=== PATIENT | male | born 1965 | race African-American/Black ===

== ENCOUNTER 2017-02-12 08:19 | Inpatient (IN) | payer OTHER ==
[~2017-02-12] VITALS: Ht 180.3 cm; Wt 91.6 kg
[2017-02-12] MEDS ORDERED: ARIP20TA2 PO (10:12)
[2017-02-12] MEDS ORDERED: QUET100T PO (10:13)
[2017-02-12 11:41] LABS: *AMPHETAMINES SCREEN URINE NEGATIVE (NEGATIVE); *BARBITURATES SCREEN URINE NEGATIVE (NEGATIVE); *BENZODIAZEPINES SCREEN URINE NEGATIVE (NEGATIVE); *COCAINE SCREEN URINE PRESUMTIVE POSITIVE (NEGATIVE); CANNABINOID URINE SCREEN PRESUMTIVE POSITIVE (NEGATIVE); METHADONE URINE SCREEN NEGATIVE (NEGATIVE); OPIATES URINE SCREEN NEGATIVE (NEGATIVE); PHENCYCLIDINE URINE SCREEN NEGATIVE (NEGATIVE)
[2017-02-12 11:45] LABS: HEMATOCRIT. 47.1 % (42.0-52.0); HEMOGLOBIN. 15.4 g/dL (14.0-18.0); LYMPHOCYTES % 11.5 % (20.0-50.0); MEAN CORPUSCULAR HEMOGLOBIN 29.5 pg (28.0-32.0); MEAN CORPUSCULAR VOLUME 89.9 fL (80.0-94.0); MEAN PLATELET VOLUME 8.9 fl (7.4-10.4); NEUTROPHILS % 77.5 % (40.0-76.0); PLATELET 372 x1000/uL (130-400); RED BLOOD CELL COUNT 5.24 mill/uL (4.7-6.1); RED CELL DISTRIBUTION WIDTH 13.3 % (11.6-14.6)
[2017-02-12 12:02] LABS: CARBON DIOXIDE 25 mEq/L (21-32); CHLORIDE 102 mEq/L (98-107); ETHANOL BLOOD < 10 mg/dL
[2017-02-12] MEDS ORDERED: ASPIRIN 325MG TABLET PO ONE (13:00)
[2017-02-12] MEDS ORDERED: SODIUM CHLORIDE 0.9% 1000ML BAG (SEPSIS BOLUS) IV ONE (13:00)
[2017-02-12] MEDS ORDERED: SODIUM CHLORIDE 0.9% 1,000 ML IV SCH (15:52)
[2017-02-12 17:31] LABS: CLARITY URINE CLOUDY (CLEAR); COLOR URINE YELLOW (YELLOW); GLUCOSE URINE NEGATIVE (NEGATIVE); KETONES URINE TRACE (NEGATIVE); LEUKOCYTE ESTERASE URINE NEGATIVE (NEGATIVE); NITRITE URINE NEGATIVE (NEGATIVE); OCCULT BLOOD URINE 3+ (NEGATIVE); PH URINE 5.5 (4.5-8.0); PROTEIN URINE 2+ (NEGATIVE); SPECIFIC GRAVITY URINE 1.027 (1.005-1.030)
[2017-02-12 20:40] VITALS: BP 128/92
[2017-02-12] MEDS ORDERED: SODIUM CHLORIDE 0.45% 1,000 ML IV SCH (21:22)
[2017-02-12] MEDS ORDERED: ACETAMINOPHEN 650MG/20.3ML UDC GT PRN (21:30)
[2017-02-12] MEDS ORDERED: MAGNESIUM/ALUMINUM HYDROXIDE/SIMETHICONE 30ML UDC PO PRN (21:30)
[2017-02-12] MEDS ORDERED: CLONIDINE 0.1MG TABLET PO PRN (21:30)
[2017-02-12] MEDS ORDERED: ONDANSETRON HCL 4MG/2ML VIAL IV PRN (21:30)
[2017-02-12] MEDS ORDERED: IPRATROPIUM/ALBUTEROL 0.5-3(2.5)MG/3ML NEB INH PRN (21:30)
[2017-02-12] MEDS ORDERED: GUAIFENESIN 200MG/10ML SUGAR FREE UDC PO PRN (21:30)
[2017-02-12] MEDS ORDERED: NA PHOS,M-B/NA PHOS,DI-BA ENEMA 118ML PR PRN (21:30)
[2017-02-12] MEDS ORDERED: ACETAMINOPHEN 325MG TABLET PO PRN (21:30)
[2017-02-12] MEDS ORDERED: DIPHENHYDRAMINE 50MG/ML VIAL IV PRN (21:30)
[2017-02-12] MEDS ORDERED: DOCUSATE SODIUM 100MG CAPSULE PO PRN (21:30)
[2017-02-12] MEDS ORDERED: ACETAMINOPHEN 650MG SUPP PR PRN (21:30)
[2017-02-12 22:09] LABS: TROPONIN I 0.14 ng/mL (0.00-0.04)
[2017-02-13] VITALS (7 sets, daily range): BP systolic 97–128; BP diastolic 65–92
[2017-02-13] MEDS: SODIUM BICARBONATE 50 MEQ in SODIUM CHLORIDE 0.45% 1,000 ML IV SCH ×3 (00:13→16:41)
[2017-02-13] MEDS: SODIUM CHLORIDE 0.9% INJ 3ML FLUSH IVF SCH ×4 (00:25→21:54)
[2017-02-13 07:38] LABS: BASOPHILS % 0.7 % (0.0-2.0); EOSINOPHILS % 0.2 % (0.0-5.0); HEMATOCRIT. 39.6 % (42.0-52.0); LYMPHOCYTES % 23.2 % (20.0-50.0); MEAN CORPUSCULAR HEMOGLOBIN 29.6 pg (28.0-32.0); MEAN CORPUSCULAR VOLUME 89.8 fL (80.0-94.0); MONOCYTES % 13.5 % (2.0-8.0); NEUTROPHILS % 62.4 % (40.0-76.0); PLATELET 317 x1000/uL (130-400); RED BLOOD CELL COUNT 4.41 mill/uL (4.7-6.1); RED CELL DISTRIBUTION WIDTH 13.3 % (11.6-14.6)
[2017-02-13 07:43] LABS: CARBON DIOXIDE 26 mEq/L (21-32); CHLORIDE 106 mEq/L (98-107); LDL CHOLESTEROL 56 mg/dL (5-100); PHOSPHORUS 2.5 mg/dL (2.5-4.9)
[2017-02-13 08:09] LABS: CREATINE KINASE MB FRACTION 42.9 ng/mL (0.5-3.6); HDL CHOLESTEROL 42 mg/dL (40-59); TROPONIN I 0.08 ng/mL (0.00-0.04)
[2017-02-13 08:10] LABS: CREATINE KINASE 6645 IU/L (39-308)
[2017-02-13] MEDS: ASPIRIN 81MG TABLET PO SCH (10:03)
[2017-02-13] MEDS ORDERED: MEDICATION NOT ON FORMULARY EA (Aripiprazole (Abilify) 1 TAB) PO SCH (10:15)
[2017-02-13 11:08] LABS: T4 FREE 1.04 ng/dL (0.76-1.46)
[2017-02-13] MEDS ORDERED: ARIPIPRAZOLE 10MG TABLET PO SCH (11:30)
[2017-02-13] MEDS: ARIPIPRAZOLE 10MG TABLET PO SCH (12:26)
[2017-02-13] MEDS ORDERED: SODIUM CHLORIDE 0.9% 1,000 ML IV SCH (12:45)
[2017-02-13] MEDS ORDERED: BRIM15DR2 EACHEYE (13:00)
[2017-02-13] MEDS ORDERED: TIMO15DR12 EACHEYE (13:03)
[2017-02-13] MEDS ORDERED: [UNRECOGNIZED DRUG - OTHER] (13:03)
[2017-02-13] MEDS: TIMOLOL MALEATE 0.5% OPHTH DROPS 5ML EACHEYE SCH (16:42)
[2017-02-13 16:43] LABS: CREATINE KINASE MB FRACTION 28.9 ng/mL (0.5-3.6); TROPONIN I 0.05 ng/mL (0.00-0.04)
[2017-02-13] MEDS: LORAZEPAM 0.5MG TABLET PO PRN (17:47)
[2017-02-13] MEDS ORDERED: MEDICATION NOT ON FORMULARY EA (Brimonidine Tartrate (Alphagan P) 1 DROP) EACHEYE SCH (21:00)
[2017-02-13] MEDS: QUETIAPINE FUMARATE 100MG TABLET PO SCH (21:46)
[2017-02-13] MEDS: BRIMONIDINE 0.2% OPHTH DROPS 5ML EACHEYE SCH (21:46)
[2017-02-14] VITALS (7 sets, daily range): BP systolic 106–128; BP diastolic 73–91
[2017-02-14 00:14] LABS: CREATINE KINASE MB FRACTION 20.3 ng/mL (0.5-3.6); TROPONIN I 0.03 ng/mL (0.00-0.04)
[2017-02-14] MEDS: SODIUM BICARBONATE 50 MEQ in SODIUM CHLORIDE 0.45% 1,000 ML IV SCH ×2 (03:07→13:00)
[2017-02-14] MEDS: SODIUM CHLORIDE 0.9% INJ 3ML FLUSH IVF SCH ×3 (06:06→21:53)
[2017-02-14 06:47] LABS: BASOPHILS % 0.7 % (0.0-2.0); EOSINOPHILS % 0.7 % (0.0-5.0); HEMATOCRIT. 37.3 % (42.0-52.0); HEMOGLOBIN. 12.3 g/dL (14.0-18.0); LYMPHOCYTES % 34.1 % (20.0-50.0); MEAN CORPUSCULAR HEMOGLOBIN 29.3 pg (28.0-32.0); MEAN PLATELET VOLUME 8.9 fl (7.4-10.4); MONOCYTES % 13.6 % (2.0-8.0); NEUTROPHILS % 50.9 % (40.0-76.0); PLATELET 303 x1000/uL (130-400); RED BLOOD CELL COUNT 4.19 mill/uL (4.7-6.1); RED CELL DISTRIBUTION WIDTH 13.4 % (11.6-14.6)
[2017-02-14 07:13] LABS: CARBON DIOXIDE 30 mEq/L (21-32); CHLORIDE 104 mEq/L (98-107); CREATINE KINASE MB FRACTION 13.7 ng/mL (0.5-3.6); PHOSPHORUS 3.3 mg/dL (2.5-4.9); TROPONIN I 0.03 ng/mL (0.00-0.04)
[2017-02-14 07:21] LABS: CREATINE KINASE 3289 IU/L (39-308)
[2017-02-14] MEDS: ARIPIPRAZOLE 10MG TABLET PO SCH (09:14)
[2017-02-14] MEDS: TIMOLOL MALEATE 0.5% OPHTH DROPS 5ML EACHEYE SCH ×2 (09:14→17:12)
[2017-02-14] MEDS: ASPIRIN 81MG TABLET PO SCH (09:14)
[2017-02-14] MEDS: HYDROCODONE/ACETAMINOPHEN 5/325MG TABLET PO PRN (09:15)
[2017-02-14] MEDS: BRIMONIDINE 0.2% OPHTH DROPS 5ML EACHEYE SCH (21:53)
[2017-02-14] MEDS: QUETIAPINE FUMARATE 100MG TABLET PO SCH (21:53)
[2017-02-15 06:00] VITALS: BP 118/66
[2017-02-15 06:37] LABS: BASOPHILS % 0.8 % (0.0-2.0); EOSINOPHILS % 1.4 % (0.0-5.0); HEMATOCRIT. 40.2 % (42.0-52.0); HEMOGLOBIN. 13.1 g/dL (14.0-18.0); LYMPHOCYTES % 43.1 % (20.0-50.0); MEAN CORPUSCULAR HEMOGLOBIN 29.2 pg (28.0-32.0); MEAN CORPUSCULAR VOLUME 89.8 fL (80.0-94.0); MEAN PLATELET VOLUME 8.9 fl (7.4-10.4); MONOCYTES % 12.1 % (2.0-8.0); NEUTROPHILS % 42.6 % (40.0-76.0); PLATELET 327 x1000/uL (130-400); RED BLOOD CELL COUNT 4.48 mill/uL (4.7-6.1); RED CELL DISTRIBUTION WIDTH 13.3 % (11.6-14.6)
[2017-02-15] MEDS: SODIUM CHLORIDE 0.9% INJ 3ML FLUSH IVF SCH ×3 (06:51→21:43)
[2017-02-15 08:00] VITALS: BP 125/98
[2017-02-15 08:12] LABS: CARBON DIOXIDE 28 mEq/L (21-32); CHLORIDE 104 mEq/L (98-107); PHOSPHORUS 4.1 mg/dL (2.5-4.9)
[2017-02-15 08:20] LABS: CREATINE KINASE 1977 IU/L (39-308)
[2017-02-15] MEDS: ASPIRIN 81MG TABLET PO SCH (08:57)
[2017-02-15] MEDS: ARIPIPRAZOLE 10MG TABLET PO SCH (08:57)
[2017-02-15] MEDS: TIMOLOL MALEATE 0.5% OPHTH DROPS 5ML EACHEYE SCH ×2 (08:58→17:25)
[2017-02-15 12:00] VITALS: BP 112/81
[2017-02-15] MEDS: LORAZEPAM 0.5MG TABLET PO PRN (14:30)
[2017-02-15 16:00] VITALS: BP 116/88
[2017-02-15 20:00] VITALS: BP 119/81
[2017-02-15] MEDS: BRIMONIDINE 0.2% OPHTH DROPS 5ML EACHEYE SCH (21:43)
[2017-02-15] MEDS: QUETIAPINE FUMARATE 100MG TABLET PO SCH (21:43)
[2017-02-16] VITALS (7 sets, daily range): BP systolic 113–139; BP diastolic 65–97
[2017-02-16] MEDS: LORAZEPAM 0.5MG TABLET PO PRN ×2 (01:37→08:43)
[2017-02-16] MEDS: SODIUM CHLORIDE 0.9% INJ 3ML FLUSH IVF SCH ×2 (06:25→15:20)
[2017-02-16] MEDS: TIMOLOL MALEATE 0.5% OPHTH DROPS 5ML EACHEYE SCH (08:38)
[2017-02-16] MEDS: ARIPIPRAZOLE 10MG TABLET PO SCH (08:39)
[2017-02-16] MEDS: ASPIRIN 81MG TABLET PO SCH (08:39)
[2017-02-16] MEDS: HYDROCODONE/ACETAMINOPHEN 5/325MG TABLET PO PRN (08:44)
== END 2017-02-16 17:30 | disposition home or self-care (01) | DRG 917 ==
LOC: ER 08:32 → 6WST 15:52 → ENRESERV 18:53
PROVIDERS: ADMIT Family Medicine; ATTEND Family Medicine
DX: T40.5X2A Poisoning by cocaine, intentional self-harm, initial encounter (principal); N17.0 Acute kidney failure with tubular necrosis; E87.2 Acidosis; E83.52 Hypercalcemia; M62.82 Rhabdomyolysis; R45.851 Suicidal ideations; T40.7X2A Poisoning by cannabis (derivatives), intentional self-harm, initial encounter; N18.9 Chronic kidney disease, unspecified; D72.829 Elevated white blood cell count, unspecified; F10.10 Alcohol abuse, uncomplicated; F99 Mental disorder, not otherwise specified; H40.9 Unspecified glaucoma; Z87.891 Personal history of nicotine dependence; Z91.5 Personal history of self-harm; Z88.6 Allergy status to analgesic agent; Z88.8 Allergy status to other drugs, medicaments and biological substances; Z79.899 Other long term (current) drug therapy; Y92.89 Other specified places as the place of occurrence of the external cause; F32.9 Major depressive disorder, single episode, unspecified
CPT/HCPCS: 36415; 71010; 80048; 80053; 80061; 80305; 80307; 80329; 81001; 82550; 82553; 82962; 83036; 83605; 83735; 83880; 84100; 84439; 84443; 84484; 85025; 85379; 87040; 87086; 93005; 93306; 96360; 99285; G0482; J3490; J7030; J7040; J7620

== ENCOUNTER 2019-05-24 03:25 | Emergency (ER) | payer BC, OTHER, MEDICAID ==
[~2019-05-24] VITALS: Ht 175.3 cm; Wt 87.0 kg
[~2019-05-24 03:25] MED LIST: ARIP20TA2 PO; BRIM15DR2 EACHEYE; QUET100T PO; TIMO15DR12 EACHEYE; [UNRECOGNIZED DRUG - OTHER]
[2019-05-24 04:10] LABS: BASOPHILS % 1.2 % (0.0-2.0); HEMATOCRIT. 44.2 % (42.0-52.0); HEMOGLOBIN. 14.5 g/dL (14.0-18.0); LYMPHOCYTES % 19.1 % (20.0-50.0); MEAN CORPUSCULAR HEMOGLOBIN 30.2 pg (28.0-32.0); MEAN CORPUSCULAR VOLUME 92.2 fL (80.0-94.0); NEUTROPHILS % 66.7 % (40.0-76.0); PLATELET 373 x1000/uL (130-400); RED BLOOD CELL COUNT 4.79 mill/uL (4.7-6.1); RED CELL DISTRIBUTION WIDTH 14.1 % (11.6-14.6)
[2019-05-24 04:36] LABS: CHLORIDE 105 mEq/L (98-107)
[2019-05-24 04:57] LABS: CLARITY URINE CLEAR (CLEAR); COLOR URINE YELLOW (YELLOW); KETONES URINE 2+ (NEGATIVE); LEUKOCYTE ESTERASE URINE NEGATIVE (NEGATIVE); NITRITE URINE NEGATIVE (NEGATIVE); OCCULT BLOOD URINE NEGATIVE (NEGATIVE); PH URINE 5.5 (4.5-8.0); PROTEIN URINE 1+ (NEGATIVE); SPECIFIC GRAVITY URINE 1.029 (1.005-1.030); UROBILINOGEN URINE 0.2 E.U./dL (0.2-1.0)
[2019-05-24 05:15] LABS: *AMPHETAMINES SCREEN URINE PRESUMTIVE POSITIVE (NEGATIVE); *BARBITURATES SCREEN URINE PRESUMTIVE POSITIVE (NEGATIVE); *BENZODIAZEPINES SCREEN URINE PRESUMTIVE POSITIVE (NEGATIVE); *COCAINE SCREEN URINE PRESUMTIVE POSITIVE (NEGATIVE)
[2019-05-24 05:16] LABS: CANNABINOID URINE SCREEN NEGATIVE (NEGATIVE); METHADONE URINE SCREEN NEGATIVE (NEGATIVE); OPIATES URINE SCREEN NEGATIVE (NEGATIVE); PHENCYCLIDINE URINE SCREEN NEGATIVE (NEGATIVE)
[2019-05-24] MEDS ORDERED: LORAZEPAM 0.5MG TABLET PO ONE (08:15)
[2019-05-24 09:00] VITALS: BP 101/69
== END 2019-05-24 10:35 | disposition home or self-care (01) ==
LOC: ER 03:25
DX: R07.9 Chest pain, unspecified (principal); T40.5X1A Poisoning by cocaine, accidental (unintentional), initial encounter; Y92.9 Unspecified place or not applicable; H40.9 Unspecified glaucoma; F41.9 Anxiety disorder, unspecified; F32.9 Major depressive disorder, single episode, unspecified; Z88.6 Allergy status to analgesic agent
CPT/HCPCS: 36415; 71045; 80053; 80305; 81003; 83880; 84484; 85025; 93005; 99284; Z7610